=== PATIENT | male | born 1985 ===

== ENCOUNTER 2017-09-23 21:36 | Inpatient (IN) | payer OTHER ==
[~2017-09-23] VITALS: Ht 175.3 cm; Wt 106.8 kg
[2017-09-23 22:43] LABS: BASOPHILS # (AUTO) 0.01 x10^3/uL (0-0.1); BASOPHILS % (AUTO) 0 % (0-1); EOSINOPHILS # (AUTO) 0.23 x10^3/uL (0-0.4); EOSINOPHILS % (AUTO) 2 % (1-7); LYMPHOCYTES # (AUTO) 0.73 x10^3/uL (1-3.4); LYMPHOCYTES % (AUTO) 7 % (22-44); MD NO; MEAN PLATELET VOLUME 7.3 fL (7.4-10.4); MONOCYTES # (AUTO) 0.02 x10^3/uL (0.2-0.8); MONOCYTES % (AUTO) 0 % (2-9); NEUTROPHILS # (AUTO) 9.61 x10^3/uL (1.8-6.8); NEUTROPHILS % (AUTO) 91 % (42-75); PLATELET COUNT 287 x10^3/uL (130-400); RED BLOOD COUNT 4.75 x10^6/uL (4.38-5.82); RED CELL DISTRIBUTION WIDTH 13.9 % (9.4-14.8)
[2017-09-23 22:46] LABS: MICROSCOPIC NOT IND
[2017-09-23 22:51] LABS: CULTURE INDICATED? NO
[2017-09-23 22:54] LABS: ALANINE AMINOTRANSFERASE 21 U/L (12-78); ALBUMIN 3.5 g/dL (3.4-5.0); ANION GAP 5 mmol/L (5-15); CALCIUM 8.6 mg/dL (8.5-10.1); CHLORIDE 109 mmol/L (98-107); CREATININE 1.07 mg/dL (0.7-1.3)
[2017-09-23 22:56] LABS: ALKALINE PHOSPHATASE 136 U/L (45-117); BILIRUBIN,TOTAL 0.3 mg/dL (0.2-1.0); TOTAL PROTEIN 6.9 g/dL (6.4-8.2)
[2017-09-23] MEDS ORDERED: BACITRACIN ZINC OINT 500U/GM, 0.9 GM ONE (23:01)
[2017-09-23] MEDS ORDERED: SODIUM CHLORIDE 0.9% 1,000ML IVBOLUS ONE (23:30)
[2017-09-23] MEDS ORDERED: SODIUM CHLORIDE FLUSH 10ML SYR IVF ONE (23:30)
[2017-09-24] MEDS ORDERED: ONDANSETRON ODT 4 MG ONE (00:24)
[2017-09-24] MEDS ORDERED: ONDANSETRON ODT 4 MG PO ONE (00:30)
[2017-09-24] MEDS ORDERED: SODIUM CHLORIDE 0.9% 1,000ML IVBOLUS ONE ×2 (00:30→02:30)
[2017-09-24] MEDS ORDERED: PROMETHAZINE 25 MG/ML, 1ML ONE (00:36)
[2017-09-24 00:44] LABS: AMPHETAMINE SCREEN, URINE Negative (Negative); BARBITURATE SCREEN, URINE Negative (Negative); BENZODIAZEPINE SCREEN, URINE Negative (Negative); CANNABINOID SCREEN, URINE Positive (Negative); COCAINE SCREEN, URINE Negative (Negative); METHADONE SCREEN, URINE Negative (Negative); OPIATE SCREEN, URINE Negative (Negative)
[2017-09-24] MEDS ORDERED: PROMETHAZINE 25 MG/ML, 1ML IM ONE (01:00)
[2017-09-24] MEDS ORDERED: CEFTRIAXONE 250 MG ONE (01:48)
[2017-09-24] MEDS ORDERED: CEFTRIAXONE 1,000 MG IM ONE (02:00)
[2017-09-24] MEDS ORDERED: VANCOMYCIN PER PHARMACY MC ONE (02:30)
[2017-09-24] MEDS ORDERED: PIPERACILLIN/TAZO/PMX 4.5GM 100 ML IVPB ONE (02:30)
[2017-09-24] MEDS ORDERED: ACETAMINOPHEN 500 MG TABLET PO ONE (02:30)
[2017-09-24] MEDS ORDERED: VANCOMYCIN 1,900 MG in SODIUM CHLORIDE 0.9% 250 ML IV ONE (02:30)
[2017-09-24] MEDS ORDERED: PIPERACILLIN/TAZO/PMX 3.375GM 50 ML ONE (02:36)
[2017-09-24] MEDS ORDERED: PIPERACILLIN/TAZO/PMX 3.375GM 50 ML IV ONE (03:00)
[2017-09-24] MEDS ORDERED: SODIUM CHLORIDE 0.9% 1,000 ML IV ONE (03:19)
[2017-09-24] MEDS ORDERED: SODIUM CHLORIDE FLUSH 10ML SYR IVF PRN (03:30)
[2017-09-24] MEDS ORDERED: OMNIPAQUE 350 MG/ML, 100ML BOTTLE ONE (03:40)
[2017-09-24] MEDS ORDERED: hydrALAzine 20 MG/ML, 1ML IVPush PRN (04:30)
[2017-09-24] MEDS ORDERED: DOXYCYCLINE 100 MG in DEXTROSE 5% 250 ML IV SCH (04:30)
[2017-09-24] MEDS ORDERED: ACETAMINOPHEN 325 MG TABLET PO PRN (04:30)
[2017-09-24] MEDS ORDERED: CEFTRIAXONE PMX 1GM/50ML 50 ML IV SCH (04:30)
[2017-09-24] MEDS ORDERED: ONDANSETRON ODT 4 MG PO PRN (04:30)
[2017-09-24 04:45] VITALS: BP 109/68
[2017-09-24 05:08] LABS: MEAN CORPUSCULAR HEMOGLOBIN 31.9 pg (27.5-34.5); MEAN CORPUSCULAR HGB CONC 34.3 g/dL (33.2-36.2); MEAN CORPUSCULAR VOLUME 93.2 fL (81-97); MEAN PLATELET VOLUME 7.3 fL (7.4-10.4); PLATELET COUNT 267 x10^3/uL (130-400); RED BLOOD COUNT 5.17 x10^6/uL (4.38-5.82); RED CELL DISTRIBUTION WIDTH 13.7 % (9.4-14.8)
[2017-09-24 05:10] LABS: ALANINE AMINOTRANSFERASE 23 U/L (12-78); ALBUMIN 3.1 g/dL (3.4-5.0); ANION GAP 10 mmol/L (5-15); CALCIUM 8.2 mg/dL (8.5-10.1); CHLORIDE 112 mmol/L (98-107); CREATININE 1.23 mg/dL (0.7-1.3)
[2017-09-24 05:13] LABS: ALKALINE PHOSPHATASE 105 U/L (45-117); BILIRUBIN,TOTAL 0.8 mg/dL (0.2-1.0); TOTAL PROTEIN 6.3 g/dL (6.4-8.2)
[2017-09-24 05:50] LABS: MD YES
[2017-09-24 05:53] LABS: BAND#(MANUAL) 2.31 x10^3/uL; BANDS%(MANUAL) 33 % (0-7); LYMPH#(MANUAL) 0.35 x10^3/uL (1-3.4); LYMPHS% (MANUAL) 5 % (22-44); MONOS#(MANUAL) 0.07 x10^3/uL (0.3-2.7); MONOS% (MANUAL) 1 % (2-9); SEG#(MANUAL) 4.27 x10^3/uL (1.8-6.8); SEGS% (MANUAL) 61 % (42-75)
[2017-09-24 05:57] LABS: <PLATELET ESTIMATE> ADEQUATE; <PLT MORPHOLOGY> NORMAL PLT MORPH; <RBC MORPHOLOGY> NORMAL
[2017-09-24] MEDS ORDERED: ACETAMINOPHEN 500 MG TABLET PO PRN (06:00)
[2017-09-24] MEDS: ENOXAPARIN 40 MG/0.4 ML SQ SCH (06:03)
[2017-09-24] MEDS: SODIUM CHLORIDE 0.9% 1,000 ML IV SCH ×3 (06:07→20:19)
[2017-09-24 06:36] LABS: CLOSTRIDIUM DIFFICILE ANTIGEN NEGATIVE; CLOSTRIDIUM DIFFICILE TOXIN NEGATIVE (Negative)
[2017-09-24 07:50] VITALS: BP 88/56
[2017-09-24] MEDS: METRONIDAZOLE PMX 500MG/100ML 100 ML IV SCH ×2 (08:29→18:15)
[2017-09-24] MEDS ORDERED: morphine SULFATE 10 MG/ML, 1ML IVPush PRN (09:30)
[2017-09-24] MEDS ORDERED: VANCOMYCIN PER PHARMACY MC PRN (09:30)
[2017-09-24] MEDS: VANCOMYCIN 1,900 MG in SODIUM CHLORIDE 0.9% 250 ML IV SCH (09:57)
[2017-09-24] MEDS ORDERED: PHARMACOKINETIC MONITORING MC PRN (10:00)
[2017-09-24 10:17] LABS: ALANINE AMINOTRANSFERASE 27 U/L (12-78); ALBUMIN 2.9 g/dL (3.4-5.0); ANION GAP 11 mmol/L (5-15); CALCIUM 7.9 mg/dL (8.5-10.1); CHLORIDE 104 mmol/L (98-107); CREATININE 2.02 mg/dL (0.7-1.3)
[2017-09-24 10:20] LABS: ALKALINE PHOSPHATASE 98 U/L (45-117); BILIRUBIN,TOTAL 0.5 mg/dL (0.2-1.0); TOTAL PROTEIN 6.2 g/dL (6.4-8.2)
[2017-09-24 10:31] VITALS: BP 72/47
[2017-09-24] MEDS ORDERED: PIPERACILLIN/TAZO/PMX 4.5GM 100 ML IV SCH (11:00)
[2017-09-24] MEDS: PIPERACILLIN/TAZO/PMX 4.5GM 100 ML IV SCH ×3 (12:16→23:10)
[2017-09-24] MEDS ORDERED: LIDOCAINE-MPF 1%, 2ML ONE (12:49)
[2017-09-24] MEDS: NOREPINEPHRINE 4 MG in SODIUM CHLORIDE 0.9% 246 ML IV PRN (14:27)
[2017-09-25] MEDS: METRONIDAZOLE PMX 500MG/100ML 100 ML IV SCH ×3 (02:00→16:45)
[2017-09-25] MEDS: VANCOMYCIN 1,900 MG in SODIUM CHLORIDE 0.9% 250 ML IV SCH ×2 (04:17→14:05)
[2017-09-25] MEDS: SODIUM CHLORIDE 0.9% 1,000 ML IV SCH ×3 (04:17→19:35)
[2017-09-25 04:29] VITALS: BP 113/78
[2017-09-25 04:51] LABS: MEAN CORPUSCULAR HEMOGLOBIN 31.7 pg (27.5-34.5); MEAN CORPUSCULAR HGB CONC 33.8 g/dL (33.2-36.2); MEAN CORPUSCULAR VOLUME 93.8 fL (81-97); MEAN PLATELET VOLUME 7.7 fL (7.4-10.4); PLATELET COUNT 167 x10^3/uL (130-400); RED BLOOD COUNT 5.46 x10^6/uL (4.38-5.82); RED CELL DISTRIBUTION WIDTH 13.7 % (9.4-14.8)
[2017-09-25 04:58] LABS: ALANINE AMINOTRANSFERASE 41 U/L (12-78); ALBUMIN 2.3 g/dL (3.4-5.0); ANION GAP 14 mmol/L (5-15); CALCIUM 7.2 mg/dL (8.5-10.1); CHLORIDE 102 mmol/L (98-107); CREATININE 1.35 mg/dL (0.7-1.3)
[2017-09-25 05:00] LABS: ALKALINE PHOSPHATASE 54 U/L (45-117); BILIRUBIN,TOTAL 0.7 mg/dL (0.2-1.0); TOTAL PROTEIN 5.7 g/dL (6.4-8.2)
[2017-09-25 05:37] LABS: MD YES
[2017-09-25 05:39] LABS: EOS#(MANUAL) 0.44 x10^3/uL (0.0-0.4); EOS% (MANUAL) 2 % (1-7); LYMPH#(MANUAL) 0.22 x10^3/uL (1-3.4); LYMPHS% (MANUAL) 1 % (22-44); MONOS#(MANUAL) 0.67 x10^3/uL (0.3-2.7); MONOS% (MANUAL) 3 % (2-9); SEG#(MANUAL) 9.99 x10^3/uL (1.8-6.8); SEGS% (MANUAL) 45 % (42-75)
[2017-09-25 05:40] LABS: BAND#(MANUAL) 9.77 x10^3/uL; BANDS%(MANUAL) 44 % (0-7); METAMYELOCYTES# (MANUAL) 1.11 x10^3/uL (0-0); METAMYELOCYTES% (MANUAL) 5 % (0-1)
[2017-09-25 05:41] LABS: PMNS WITH VACUOLES 2+
[2017-09-25] MEDS: ENOXAPARIN 40 MG/0.4 ML SQ SCH (05:41)
[2017-09-25] MEDS: PIPERACILLIN/TAZO/PMX 4.5GM 100 ML IV SCH ×4 (05:41→22:44)
[2017-09-25 05:42] LABS: <PLATELET ESTIMATE> ADEQUATE; <PLT MORPHOLOGY> NORMAL PLT MORPH; <RBC MORPHOLOGY> NORMAL
[2017-09-25] MEDS ORDERED: POTASSIUM CHLORIDE 20 MEQ TAB.ER.PRT ONE (06:18)
[2017-09-25] MEDS ORDERED: POTASSIUM CHLORIDE 20 MEQ TAB.ER.PRT PO ONE (06:30)
[2017-09-25] MEDS ORDERED: POTASSIUM CHLORIDE 40 MEQ in SODIUM CHLORIDE 0.9% 100 ML IV ONE (06:30)
[2017-09-25] MEDS: POTASSIUM CHLORIDE 20 MEQ TAB.ER.PRT PO SCH ×2 (10:19→16:45)
[2017-09-25] MEDS: OXYcodone IR 5MG TABLET PO PRN ×3 (10:19→21:50)
[2017-09-25] MEDS: KETOROLAC 30 MG/1 ML IVPush PRN ×2 (10:19→19:35)
[2017-09-25] MEDS: NOREPINEPHRINE 4 MG in SODIUM CHLORIDE 0.9% 246 ML IV PRN (21:21)
[2017-09-26] MEDS: METRONIDAZOLE PMX 500MG/100ML 100 ML IV SCH ×3 (01:34→17:16)
[2017-09-26] MEDS: SODIUM CHLORIDE 0.9% 1,000 ML IV SCH ×3 (01:34→14:58)
[2017-09-26] MEDS: NOREPINEPHRINE 4 MG in SODIUM CHLORIDE 0.9% 246 ML IV PRN (04:05)
[2017-09-26 04:25] LABS: ANION GAP 8 mmol/L (5-15); CALCIUM 6.4 mg/dL (8.5-10.1); CHLORIDE 109 mmol/L (98-107); CREATININE 2.29 mg/dL (0.7-1.3)
[2017-09-26 04:30] LABS: MEAN CORPUSCULAR HEMOGLOBIN 31.7 pg (27.5-34.5); MEAN CORPUSCULAR HGB CONC 34.2 g/dL (33.2-36.2); MEAN CORPUSCULAR VOLUME 92.8 fL (81-97); MEAN PLATELET VOLUME 7.8 fL (7.4-10.4); PLATELET COUNT 128 x10^3/uL (130-400); RED BLOOD COUNT 4.32 x10^6/uL (4.38-5.82); RED CELL DISTRIBUTION WIDTH 13.5 % (9.4-14.8)
[2017-09-26] MEDS: VANCOMYCIN 1,900 MG in SODIUM CHLORIDE 0.9% 250 ML IV SCH (04:37)
[2017-09-26 05:10] LABS: MD YES
[2017-09-26 05:15] LABS: BANDS%(MANUAL) 27 % (0-7); EOS#(MANUAL) 3.29 x10^3/uL (0.0-0.4); EOS% (MANUAL) 12 % (1-7); LYMPH#(MANUAL) 0.82 x10^3/uL (1-3.4); LYMPHS% (MANUAL) 3 % (22-44); MONOS#(MANUAL) 0.27 x10^3/uL (0.3-2.7); MONOS% (MANUAL) 1 % (2-9); SEG#(MANUAL) 15.62 x10^3/uL (1.8-6.8); SEGS% (MANUAL) 57 % (42-75)
[2017-09-26 05:16] LABS: <RBC MORPHOLOGY> NORMAL
[2017-09-26 05:17] LABS: <PLATELET ESTIMATE> DECREASED; <PLT MORPHOLOGY> NORMAL PLT MORPH
[2017-09-26 05:18] LABS: TOXIC GRAN 1+
[2017-09-26 06:00] VITALS: BP 109/62
[2017-09-26] MEDS: ENOXAPARIN 40 MG/0.4 ML SQ SCH (06:08)
[2017-09-26] MEDS: PIPERACILLIN/TAZO/PMX 4.5GM 100 ML IV SCH ×3 (06:08→18:28)
[2017-09-26] MEDS: CIPROFLOXACIN OPHTH SOLN 0.3%, 5ML EACHEYE SCH ×3 (10:04→21:11)
[2017-09-26] MEDS: LINEZOLID PMX 600MG/300ML 300 ML IV SCH ×2 (10:58→21:13)
[2017-09-26] MEDS: KETOROLAC 30 MG/1 ML IVPush PRN (17:20)
[2017-09-27] MEDS: PIPERACILLIN/TAZO/PMX 4.5GM 100 ML IV SCH ×4 (00:47→22:11)
[2017-09-27] MEDS: SODIUM CHLORIDE 0.9% 1,000 ML IV SCH (00:47)
[2017-09-27] MEDS: METRONIDAZOLE PMX 500MG/100ML 100 ML IV SCH ×3 (02:26→19:42)
[2017-09-27 04:29] LABS: MEAN CORPUSCULAR HEMOGLOBIN 31.2 pg (27.5-34.5); MEAN CORPUSCULAR HGB CONC 34.1 g/dL (33.2-36.2); MEAN CORPUSCULAR VOLUME 91.7 fL (81-97); MEAN PLATELET VOLUME 8.1 fL (7.4-10.4); PLATELET COUNT 108 x10^3/uL (130-400); RED BLOOD COUNT 4.07 x10^6/uL (4.38-5.82); RED CELL DISTRIBUTION WIDTH 13.5 % (9.4-14.8)
[2017-09-27 04:41] LABS: ALBUMIN 1.6 g/dL (3.4-5.0); ANION GAP 10 mmol/L (5-15); CALCIUM 6.8 mg/dL (8.5-10.1); CHLORIDE 108 mmol/L (98-107)
[2017-09-27 04:48] LABS: ALANINE AMINOTRANSFERASE 25 U/L (12-78); ALKALINE PHOSPHATASE 132 U/L (45-117); BILIRUBIN,TOTAL 1.4 mg/dL (0.2-1.0); TOTAL PROTEIN 4.7 g/dL (6.4-8.2)
[2017-09-27 04:59] LABS: MD YES
[2017-09-27 05:01] LABS: <PLATELET ESTIMATE> DECREASED; <PLT MORPHOLOGY> NORMAL PLT MORPH; <RBC MORPHOLOGY> NORMAL; BAND#(MANUAL) 2.83 x10^3/uL; BANDS%(MANUAL) 12 % (0-7); EOS#(MANUAL) 0.47 x10^3/uL (0.0-0.4); EOS% (MANUAL) 2 % (1-7); LYMPH#(MANUAL) 1.42 x10^3/uL (1-3.4); LYMPHS% (MANUAL) 6 % (22-44); SEG#(MANUAL) 18.88 x10^3/uL (1.8-6.8); SEGS% (MANUAL) 80 % (42-75); TOXIC GRAN 1+
[2017-09-27] MEDS: ENOXAPARIN 40 MG/0.4 ML SQ SCH (05:56)
[2017-09-27 06:00] VITALS: BP 108/66
[2017-09-27 08:00] VITALS: BP 107/65
[2017-09-27] MEDS ORDERED: POTASSIUM CHLORIDE 20 MEQ TAB.ER.PRT PO ONE (08:00)
[2017-09-27] MEDS: CIPROFLOXACIN OPHTH SOLN 0.3%, 5ML EACHEYE SCH ×3 (09:40→23:03)
[2017-09-27] MEDS: LINEZOLID PMX 600MG/300ML 300 ML IV SCH (12:14)
[2017-09-27] MEDS: CALCIUM CARBONATE 500 MG TAB.CHEW PO SCH ×3 (12:14→22:11)
[2017-09-27 14:17] VITALS: BP 104/62
[2017-09-27] MEDS ORDERED: ERGOCALCIFEROL 50,000 UNIT CAPSULE PO SCH (15:00)
[2017-09-27] MEDS: OXYcodone IR 5MG TABLET PO PRN ×2 (17:46→23:03)
[2017-09-27 19:52] VITALS: BP 107/66
[2017-09-28] MEDS: LINEZOLID PMX 600MG/300ML 300 ML IV SCH ×3 (00:03→23:44)
[2017-09-28] MEDS: PIPERACILLIN/TAZO/PMX 4.5GM 100 ML IV SCH ×4 (03:40→21:24)
[2017-09-28 03:48] VITALS: BP 107/68
[2017-09-28] MEDS: METRONIDAZOLE PMX 500MG/100ML 100 ML IV SCH (05:20)
[2017-09-28] MEDS: OXYcodone IR 5MG TABLET PO PRN ×4 (05:20→19:55)
[2017-09-28] MEDS: ENOXAPARIN 40 MG/0.4 ML SQ SCH (05:23)
[2017-09-28 05:40] LABS: CALCIUM 6.8 mg/dL (8.5-10.1); CHLORIDE 106 mmol/L (98-107)
[2017-09-28 05:44] LABS: ANION GAP 11 mmol/L (5-15); CREATININE 2.17 mg/dL (0.7-1.3); MEAN CORPUSCULAR HEMOGLOBIN 31.8 pg (27.5-34.5); MEAN CORPUSCULAR HGB CONC 33.9 g/dL (33.2-36.2); MEAN CORPUSCULAR VOLUME 93.7 fL (81-97); MEAN PLATELET VOLUME 8.4 fL (7.4-10.4); PLATELET COUNT 104 x10^3/uL (130-400); RED BLOOD COUNT 3.97 x10^6/uL (4.38-5.82); RED CELL DISTRIBUTION WIDTH 13.4 % (9.4-14.8)
[2017-09-28 06:17] LABS: BASOPHILS # (AUTO) 0.02 x10^3/uL (0-0.1); BASOPHILS % (AUTO) 0 % (0-1); EOSINOPHILS # (AUTO) 1.88 x10^3/uL (0-0.4); EOSINOPHILS % (AUTO) 12 % (1-7); LYMPHOCYTES % (AUTO) 7 % (22-44); MD SCAN; MONOCYTES # (AUTO) 0.38 x10^3/uL (0.2-0.8); MONOCYTES % (AUTO) 3 % (2-9); NEUTROPHILS # (AUTO) 12.27 x10^3/uL (1.8-6.8); NEUTROPHILS % (AUTO) 78 % (42-75)
[2017-09-28] MEDS ORDERED: POTASSIUM CHLORIDE 20 MEQ TAB.ER.PRT PO ONE (07:30)
[2017-09-28 07:47] VITALS: BP 110/66
[2017-09-28] MEDS: CALCIUM CARBONATE 500 MG TAB.CHEW PO SCH ×3 (09:37→21:24)
[2017-09-28] MEDS: CIPROFLOXACIN OPHTH SOLN 0.3%, 5ML EACHEYE SCH ×3 (09:38→21:24)
[2017-09-28 14:19] VITALS: BP 112/70
[2017-09-28 20:57] VITALS: BP 118/75
[2017-09-29 01:22] VITALS: BP 114/57
[2017-09-29] MEDS: PIPERACILLIN/TAZO/PMX 4.5GM 100 ML IV SCH ×2 (02:52→10:14)
[2017-09-29 05:18] LABS: MEAN CORPUSCULAR HEMOGLOBIN 31.5 pg (27.5-34.5); MEAN CORPUSCULAR HGB CONC 34.3 g/dL (33.2-36.2); MEAN CORPUSCULAR VOLUME 91.9 fL (81-97); MEAN PLATELET VOLUME 8.2 fL (7.4-10.4); PLATELET COUNT 105 x10^3/uL (130-400); RED BLOOD COUNT 4.24 x10^6/uL (4.38-5.82)
[2017-09-29 05:31] LABS: CHLORIDE 105 mmol/L (98-107)
[2017-09-29 05:57] LABS: ANION GAP 11 mmol/L (5-15); CALCIUM 7.3 mg/dL (8.5-10.1); CREATININE 2.33 mg/dL (0.7-1.3)
[2017-09-29 06:09] LABS: MD YES
[2017-09-29 06:11] LABS: BAND#(MANUAL) 0.15 x10^3/uL; BANDS%(MANUAL) 1 % (0-7); EOS% (MANUAL) 18 % (1-7); LYMPH#(MANUAL) 2.55 x10^3/uL (1-3.4); LYMPHS% (MANUAL) 17 % (22-44); MONOS% (MANUAL) 4 % (2-9); SEGS% (MANUAL) 60 % (42-75)
[2017-09-29 06:12] LABS: <PLATELET ESTIMATE> DECREASED; <PLT MORPHOLOGY> NORMAL PLT MORPH; <RBC MORPHOLOGY> NORMAL
[2017-09-29 08:14] VITALS: BP 129/80
[2017-09-29] MEDS: ENOXAPARIN 40 MG/0.4 ML SQ SCH (09:00)
[2017-09-29] MEDS: CALCIUM CARBONATE 500 MG TAB.CHEW PO SCH ×3 (10:14→21:46)
[2017-09-29] MEDS: CIPROFLOXACIN OPHTH SOLN 0.3%, 5ML EACHEYE SCH ×3 (10:14→21:46)
[2017-09-29] MEDS: SODIUM CHLORIDE 0.9% 1,000 ML IV SCH ×3 (10:16→23:50)
[2017-09-29] MEDS: OXYcodone IR 5MG TABLET PO PRN ×3 (10:21→21:46)
[2017-09-29 11:37] LABS: MICROSCOPIC AUTO
[2017-09-29 11:46] LABS: CULTURE INDICATED? YES
[2017-09-29 11:52] LABS: CREATININE,URINE RANDOM 39.8 mg/dL
[2017-09-29] MEDS: HEPARIN 5,000 UNITS/ML, 1ML SQ SCH ×2 (12:20→20:14)
[2017-09-29] MEDS: LINEZOLID PMX 600MG/300ML 300 ML IV SCH (12:20)
[2017-09-29 14:17] VITALS: BP 116/72
[2017-09-29] MEDS: PIPERACILLIN/TAZO/PMX 2.25GM 50 ML IVPB SCH ×2 (17:14→21:46)
[2017-09-29 20:15] VITALS: BP 134/76
[2017-09-30] MEDS: LINEZOLID PMX 600MG/300ML 300 ML IV SCH ×2 (00:10→11:36)
[2017-09-30 01:17] VITALS: BP 112/67
[2017-09-30] MEDS: PIPERACILLIN/TAZO/PMX 2.25GM 50 ML IVPB SCH (03:53)
[2017-09-30] MEDS: HEPARIN 5,000 UNITS/ML, 1ML SQ SCH ×3 (03:53→20:58)
[2017-09-30 05:12] LABS: MEAN CORPUSCULAR HEMOGLOBIN 31.2 pg (27.5-34.5); MEAN CORPUSCULAR HGB CONC 33.7 g/dL (33.2-36.2); MEAN CORPUSCULAR VOLUME 92.7 fL (81-97); MEAN PLATELET VOLUME 8.3 fL (7.4-10.4); PLATELET COUNT 111 x10^3/uL (130-400); RED BLOOD COUNT 4.08 x10^6/uL (4.38-5.82)
[2017-09-30 05:13] LABS: ANION GAP 9 mmol/L (5-15); CALCIUM 7.3 mg/dL (8.5-10.1); CHLORIDE 108 mmol/L (98-107); CREATININE 2.08 mg/dL (0.7-1.3)
[2017-09-30 05:57] LABS: MD YES
[2017-09-30 05:58] LABS: BAND#(MANUAL) 0.18 x10^3/uL; BANDS%(MANUAL) 1 % (0-7); METAMYELOCYTES# (MANUAL) 0.18 x10^3/uL (0-0); METAMYELOCYTES% (MANUAL) 1 % (0-1); MONOS#(MANUAL) 0.53 x10^3/uL (0.3-2.7); MONOS% (MANUAL) 3 % (2-9)
[2017-09-30 05:59] LABS: EOS% (MANUAL) 8 % (1-7)
[2017-09-30 06:00] LABS: <PLATELET ESTIMATE> DECREASED; <PLT MORPHOLOGY> NORMAL PLT MORPH; <RBC MORPHOLOGY> NORMAL; TOXIC GRAN 1+
[2017-09-30 06:01] LABS: LYMPH#(MANUAL) 3.15 x10^3/uL (1-3.4); LYMPHS% (MANUAL) 18 % (22-44); SEG#(MANUAL) 12.08 x10^3/uL (1.8-6.8); SEGS% (MANUAL) 69 % (42-75)
[2017-09-30] MEDS: SODIUM CHLORIDE 0.9% 1,000 ML IV SCH ×2 (07:00→19:00)
[2017-09-30 07:03] VITALS: BP 149/84
[2017-09-30] MEDS ORDERED: POTASSIUM CHLORIDE 20 MEQ TAB.ER.PRT PO ONE (09:00)
[2017-09-30] MEDS: CALCIUM CARBONATE 500 MG TAB.CHEW PO SCH ×3 (10:13→20:58)
[2017-09-30] MEDS: PIPERACILLIN/TAZO/PMX 3.375GM 50 ML IV SCH ×3 (10:13→22:12)
[2017-09-30] MEDS: CIPROFLOXACIN OPHTH SOLN 0.3%, 5ML EACHEYE SCH ×3 (10:13→20:58)
[2017-09-30] MEDS: OXYcodone IR 5MG TABLET PO PRN ×3 (10:18→21:15)
[2017-09-30 14:29] VITALS: BP 133/79
[2017-09-30 19:09] VITALS: BP 127/80
[2017-10-01] MEDS: LINEZOLID PMX 600MG/300ML 300 ML IV SCH ×2 (00:11→12:44)
[2017-10-01] MEDS: SODIUM CHLORIDE 0.9% 1,000 ML IV SCH ×4 (00:15→20:20)
[2017-10-01 01:16] VITALS: BP 125/71
[2017-10-01] MEDS: PIPERACILLIN/TAZO/PMX 3.375GM 50 ML IV SCH ×4 (04:51→22:39)
[2017-10-01] MEDS: HEPARIN 5,000 UNITS/ML, 1ML SQ SCH ×3 (04:51→20:20)
[2017-10-01 05:37] LABS: MEAN CORPUSCULAR HEMOGLOBIN 31.6 pg (27.5-34.5); MEAN CORPUSCULAR HGB CONC 34.1 g/dL (33.2-36.2); MEAN CORPUSCULAR VOLUME 92.5 fL (81-97); MEAN PLATELET VOLUME 7.7 fL (7.4-10.4); PLATELET COUNT 138 x10^3/uL (130-400); RED CELL DISTRIBUTION WIDTH 14.2 % (9.4-14.8)
[2017-10-01 05:50] LABS: CHLORIDE 112 mmol/L (98-107)
[2017-10-01 06:07] LABS: BASOPHILS # (AUTO) 0.02 x10^3/uL (0-0.1); BASOPHILS % (AUTO) 0 % (0-1); EOSINOPHILS % (AUTO) 5 % (1-7); LYMPHOCYTES # (AUTO) 3.14 x10^3/uL (1-3.4); LYMPHOCYTES % (AUTO) 16 % (22-44); MD SCAN; MONOCYTES # (AUTO) 0.47 x10^3/uL (0.2-0.8); MONOCYTES % (AUTO) 2 % (2-9); NEUTROPHILS % (AUTO) 77 % (42-75)
[2017-10-01 06:49] LABS: ANION GAP 12 mmol/L (5-15); CALCIUM 7.2 mg/dL (8.5-10.1); CREATININE 1.72 mg/dL (0.7-1.3)
[2017-10-01 09:21] VITALS: BP 129/79
[2017-10-01] MEDS: CIPROFLOXACIN OPHTH SOLN 0.3%, 5ML EACHEYE SCH ×3 (09:47→20:20)
[2017-10-01] MEDS: CALCIUM CARBONATE 500 MG TAB.CHEW PO SCH ×3 (09:48→20:20)
[2017-10-01 15:17] VITALS: BP 129/79
[2017-10-01] MEDS: OXYcodone IR 5MG TABLET PO PRN (17:28)
[2017-10-01 19:48] VITALS: BP 134/77
[2017-10-02] MEDS: LINEZOLID PMX 600MG/300ML 300 ML IV SCH ×2 (00:20→12:41)
[2017-10-02] MEDS: SODIUM CHLORIDE 0.9% 1,000 ML IV SCH ×3 (02:06→19:22)
[2017-10-02 03:17] VITALS: BP 134/63
[2017-10-02] MEDS: PIPERACILLIN/TAZO/PMX 3.375GM 50 ML IV SCH ×2 (04:34→10:24)
[2017-10-02] MEDS: HEPARIN 5,000 UNITS/ML, 1ML SQ SCH ×3 (04:35→20:53)
[2017-10-02 06:41] LABS: MEAN CORPUSCULAR HEMOGLOBIN 31.3 pg (27.5-34.5); MEAN CORPUSCULAR HGB CONC 34.1 g/dL (33.2-36.2); MEAN CORPUSCULAR VOLUME 91.9 fL (81-97); MEAN PLATELET VOLUME 7.4 fL (7.4-10.4); PLATELET COUNT 197 x10^3/uL (130-400); RED BLOOD COUNT 4.16 x10^6/uL (4.38-5.82)
[2017-10-02 06:50] LABS: ALANINE AMINOTRANSFERASE 18 U/L (12-78); ALBUMIN 1.9 g/dL (3.4-5.0); ANION GAP 8 mmol/L (5-15); CALCIUM 7.7 mg/dL (8.5-10.1); CHLORIDE 111 mmol/L (98-107); CREATININE 1.61 mg/dL (0.7-1.3)
[2017-10-02 06:52] LABS: ALKALINE PHOSPHATASE 85 U/L (45-117); BILIRUBIN,TOTAL 0.4 mg/dL (0.2-1.0); TOTAL PROTEIN 5.9 g/dL (6.4-8.2)
[2017-10-02 06:56] LABS: BASOPHILS # (AUTO) 0.07 x10^3/uL (0-0.1); BASOPHILS % (AUTO) 0 % (0-1); EOSINOPHILS % (AUTO) 4 % (1-7); LYMPHOCYTES # (AUTO) 2.83 x10^3/uL (1-3.4); LYMPHOCYTES % (AUTO) 15 % (22-44); MD SCAN; MONOCYTES # (AUTO) 0.52 x10^3/uL (0.2-0.8); MONOCYTES % (AUTO) 3 % (2-9); NEUTROPHILS # (AUTO) 14.77 x10^3/uL (1.8-6.8); NEUTROPHILS % (AUTO) 78 % (42-75)
[2017-10-02 07:03] VITALS: BP 134/80
[2017-10-02] MEDS: CALCIUM CARBONATE 500 MG TAB.CHEW PO SCH ×3 (10:24→20:54)
[2017-10-02] MEDS: CIPROFLOXACIN OPHTH SOLN 0.3%, 5ML EACHEYE SCH ×3 (10:24→20:54)
[2017-10-02 13:24] VITALS: BP 135/81
[2017-10-02] MEDS: CEFTRIAXONE PMX 2GM/50ML 50 ML IV SCH (14:14)
[2017-10-02] MEDS: DOXYCYCLINE 100 MG in DEXTROSE 5% 250 ML IV SCH (15:29)
[2017-10-02] MEDS: OXYcodone IR 5MG TABLET PO PRN ×2 (15:30→20:54)
[2017-10-02 19:16] VITALS: BP 123/74
[2017-10-02] MEDS: METRONIDAZOLE PMX 500MG/100ML 100 ML IV SCH (19:22)
[2017-10-03] MEDS: OXYcodone IR 5MG TABLET PO PRN ×2 (00:58→14:21)
[2017-10-03 01:17] VITALS: BP 126/76
[2017-10-03] MEDS: METRONIDAZOLE PMX 500MG/100ML 100 ML IV SCH ×3 (02:31→19:36)
[2017-10-03] MEDS: SODIUM CHLORIDE 0.9% 1,000 ML IV SCH ×4 (03:33→22:51)
[2017-10-03] MEDS: DOXYCYCLINE 100 MG in DEXTROSE 5% 250 ML IV SCH ×2 (03:33→16:14)
[2017-10-03] MEDS: HEPARIN 5,000 UNITS/ML, 1ML SQ SCH ×3 (04:43→20:55)
[2017-10-03 05:01] LABS: HCT (SEDRATE) 35.1 % (39.2-51.8)
[2017-10-03 05:11] LABS: BASOPHILS # (AUTO) 0.07 x10^3/uL (0-0.1); BASOPHILS % (AUTO) 1 % (0-1); EOSINOPHILS # (AUTO) 0.89 x10^3/uL (0-0.4); EOSINOPHILS % (AUTO) 7 % (1-7); LYMPHOCYTES # (AUTO) 2.75 x10^3/uL (1-3.4); LYMPHOCYTES % (AUTO) 22 % (22-44); MD NO; MEAN CORPUSCULAR HEMOGLOBIN 31.4 pg (27.5-34.5); MEAN CORPUSCULAR HGB CONC 33.9 g/dL (33.2-36.2); MEAN CORPUSCULAR VOLUME 92.5 fL (81-97); MEAN PLATELET VOLUME 7.1 fL (7.4-10.4); MONOCYTES # (AUTO) 0.66 x10^3/uL (0.2-0.8); MONOCYTES % (AUTO) 5 % (2-9); NEUTROPHILS # (AUTO) 8.24 x10^3/uL (1.8-6.8); NEUTROPHILS % (AUTO) 65 % (42-75); PLATELET COUNT 237 x10^3/uL (130-400); RED CELL DISTRIBUTION WIDTH 13.9 % (9.4-14.8)
[2017-10-03 05:13] LABS: CHLORIDE 108 mmol/L (98-107)
[2017-10-03 05:19] LABS: ALBUMIN 2.1 g/dL (3.4-5.0); ANION GAP 8 mmol/L (5-15); CALCIUM 7.6 mg/dL (8.5-10.1); CREATININE 1.43 mg/dL (0.7-1.3); HIGH-SENSITIVITY CRP 0.93 mg/dL (0.02-0.30)
[2017-10-03 07:44] VITALS: BP 131/75
[2017-10-03] MEDS: CALCIUM CARBONATE 500 MG TAB.CHEW PO SCH ×3 (08:36→20:55)
[2017-10-03] MEDS: CIPROFLOXACIN OPHTH SOLN 0.3%, 5ML EACHEYE SCH ×3 (08:36→20:54)
[2017-10-03 13:42] VITALS: BP 126/73
[2017-10-03] MEDS: CEFTRIAXONE PMX 2GM/50ML 50 ML IV SCH (14:15)
[2017-10-03 18:33] VITALS: BP 133/74
[2017-10-04 02:25] VITALS: BP 147/81
[2017-10-04] MEDS: METRONIDAZOLE PMX 500MG/100ML 100 ML IV SCH ×2 (03:18→10:46)
[2017-10-04] MEDS: HEPARIN 5,000 UNITS/ML, 1ML SQ SCH (04:22)
[2017-10-04] MEDS: DOXYCYCLINE 100 MG in DEXTROSE 5% 250 ML IV SCH (04:22)
[2017-10-04] MEDS: SODIUM CHLORIDE 0.9% 1,000 ML IV SCH ×2 (04:22→10:45)
[2017-10-04 08:02] VITALS: BP 125/73
[2017-10-04] MEDS ORDERED: CEFD300C37 PO (10:25)
[2017-10-04] MEDS ORDERED: METR500T PO (10:25)
[2017-10-04] MEDS ORDERED: DOXY100T10 PO (10:25)
[2017-10-04] MEDS: CALCIUM CARBONATE 500 MG TAB.CHEW PO SCH (10:45)
[2017-10-04] MEDS: CIPROFLOXACIN OPHTH SOLN 0.3%, 5ML EACHEYE SCH (10:45)
== END 2017-10-04 12:18 | disposition home or self-care (01) | DRG 871 ==
LOC: ED 22:40 → EDIP 09-24 03:19 → 4EST 09-24 04:31 → CCU 09-24 11:46 → 3NE 09-27 17:11 → DCLOUNGE 10-04 12:03
PROVIDERS: ADMIT Hospitalist; ATTEND Hospitalist
PROC: 02HV33Z Insertion of Infusion Device into Superior Vena Cava, Percutaneous Approach (ICD-10-PCS; principal; 2017-09-24)
PROC: B548ZZA Ultrasonography of Superior Vena Cava, Guidance (ICD-10-PCS; 2017-09-24)
DX: A41.9 Sepsis, unspecified organism (principal); E43 Unspecified severe protein-calorie malnutrition; G93.41 Metabolic encephalopathy; J96.91 Respiratory failure, unspecified with hypoxia; R65.21 Severe sepsis with septic shock; J93.9 Pneumothorax, unspecified; L03.315 Cellulitis of perineum; N17.9 Acute kidney failure, unspecified; A63.0 Anogenital (venereal) warts; D64.9 Anemia, unspecified; Z68.34 Body mass index [BMI] 34.0-34.9, adult; E83.51 Hypocalcemia; E87.5 Hyperkalemia; E87.6 Hypokalemia; K52.9 Noninfective gastroenteritis and colitis, unspecified; N45.1 Epididymitis; N50.89 Other specified disorders of the male genital organs; S01.01XA Laceration without foreign body of scalp, initial encounter; S91.135A Puncture wound without foreign body of left lesser toe(s) without damage to nail, initial encounter
CPT/HCPCS: 36415; 36569; 70450; 71045; 71046; 71250; 74177; 76870; 76937; 77001; 80048; 80053; 80074; 80307; 81001; 81003; 82040; 82306; 82330; 82533; 82570; 83605; 83690; 83735; 83935; 83970; 84100; 84145; 84300; 85025; 85651; 86141; 86592; 87040; 87046; 87081; 87086; 87205; 87324; 87427; 87491; 87591; 87806; 93005; 96361; 96365; 96372; J0696; J1644; J1650; J1885; J2020; J2543; J2550; J3370; J3480; J3490; J7060; Q0162; Q9967; C1751; G0475; J2270; J7030; J7050